=== PATIENT | male | born 1975 | race African-American/Black ===

== ENCOUNTER 2024-06-17 23:30 | Inpatient (IN) | payer OTHER ==
[~2024-06-17] VITALS: Ht 170.1 cm; Wt 57.8 kg
[2024-06-17 23:31] VITALS: BP 75/39
[2024-06-17] MEDS ORDERED: SODIUM CHLORIDE 0.9% 1,000 ML IV ONE (23:35)
[2024-06-18] VITALS (23 sets, daily range): BP systolic 72–184; BP diastolic 33–107
[2024-06-18 00:26] LABS: BASO % 0.1 % (0.0-1.0); EOS # 0.1 10*3/uL (0.0-0.4); EOS % 0.4 % (1.0-4.0); HEMATOCRIT 30.7 % (42.0-52.0); LYMPH # 0.9 10*3/uL (1.3-4.4); LYMPH % 5.6 % (27.0-41.0); MEAN CORPUSCULAR HGB 25.8 pg (27.0-31.0); MEAN CORPUSCULAR HGB CONC 29.3 g/dl (33.0-37.0); MEAN PLATELET VOLUME 10.4 fl (9.6-12.3); MONO # 1.4 10*3/uL (0.1-1.0); MONO % 8.3 % (3.0-9.0); NEUT % 84.8 % (47.0-73.0); PLATELET COUNT AUTOMATED 286 10*3/uL (130-400); RED BLOOD COUNT 3.49 10*6/uL (4.50-5.90); RED CELL DISTRI WIDTH 19.7 % (0-14.5); WHITE BLOOD COUNT 16.5 10*3/uL (4.8-10.8)
[2024-06-18 00:39] LABS: ACT PARTIAL THROMBO TIME 27.8 SECONDS (20.0-32.1)
[2024-06-18 00:43] LABS: ALKALINE PHOSPHATASE 161 U/L (46-116); CHLORIDE 97 mmol/L (98-107); POTASSIUM 4.8 mmol/L (3.4-5.1); SGPT/ALT 22 U/L (5-49); TOTAL PROTEIN 8.6 gm/dL (6.0-8.0)
[2024-06-18 00:45] LABS: BUN 64 mg/dl (9-23)
[2024-06-18 01:12] LABS: BILIRUBIN Negative (Negative); BLOOD 3+ (Negative); CLARITY Turbid (Clear); COLOR Red (Yellow); GLUCOSE Negative (Negative); KETONE Negative (Negative); LEUKO ESTERASE 3+ (Negative); NITRITE Negative (Negative); SPECIFIC GRAVITY 1.015 (1.001-1.030); UROBILINOGEN 0.2 E.U./dl (0.0-1.0)
[2024-06-18 01:17] LABS: PH >= 9.0 (4.5-8.0)
[2024-06-18] MEDS ORDERED: AZITHROMYCIN 250 ML IV ONE (01:20)
[2024-06-18] MEDS ORDERED: Ceftriaxone Sodium 1 GM/10 ML SYR IV ONE (01:20)
[2024-06-18] MEDS ORDERED: MORPHINE Sulfate 2 MG/ML SYR IV ONE (01:20)
[2024-06-18 01:53] LABS: BACTERIA 3+; RBC TNTC rbc/hpf (0-2); WBC 31-40 wbc/hpf (0-5)
[2024-06-18] MEDS ORDERED: Vancomycin Hydrochloride 250 ML IV ONE (02:15)
[2024-06-18] MEDS ORDERED: SODIUM CHLORIDE 0.9% 1,000 ML IV SCH (02:15)
[2024-06-18] MEDS ORDERED: Piperacillin Sodium/Tazobact 50 ML IV ONE (02:15)
[2024-06-18] MEDS ORDERED: TYLENOL325 M2 GT (03:18)
[2024-06-18] MEDS ORDERED: Albuterol Sulfate 2.5 MG/3 ML VIAL NEB ONE (03:20)
[2024-06-18] MEDS ORDERED: ACETYLCYST100 MG/1 M INH (03:22)
[2024-06-18] MEDS ORDERED: VENTOLIN 02.5 MG/3 M INH (03:23)
[2024-06-18] MEDS ORDERED: PACERONE100 MG GT (03:31)
[2024-06-18] MEDS ORDERED: BACLOFEN5 MG GT (03:32)
[2024-06-18] MEDS ORDERED: ARTIFICIAL TEAR1514 OU (03:33)
[2024-06-18] MEDS ORDERED: LAXATIVE SUPPOS10 MG R (03:35)
[2024-06-18] MEDS ORDERED: BUSPIRONE10 MG GT (03:38)
[2024-06-18] MEDS ORDERED: VIBRAMYCIN HYC100 MG GT (03:41)
[2024-06-18] MEDS ORDERED: [UNRECOGNIZED DRUG - OTHER] GT (03:47)
[2024-06-18] MEDS ORDERED: FERROUS SU300 MG/5 M GT (03:48)
[2024-06-18] MEDS ORDERED: FLEET ENEMA 13133 ML R (03:49)
[2024-06-18] MEDS ORDERED: BISACODYL 5 MG TAB PO PRN (03:55)
[2024-06-18] MEDS ORDERED: Ondansetron Hydrochloride 4 MG/2 ML VIAL IV PRN (03:55)
[2024-06-18] MEDS ORDERED: TEMAZEPAM 15 MG CAP PO PRN (03:55)
[2024-06-18] MEDS ORDERED: ACETAMINOPHEN 325 MG TAB PO PRN (03:55)
[2024-06-18] MEDS ORDERED: BISACODYL 10 MG SUPP R PRN (03:55)
[2024-06-18] MEDS ORDERED: ACETAMINOPHEN 650 MG SUPP R PRN (03:55)
[2024-06-18] MEDS ORDERED: Magnesium Hydroxide 30 ML UDC PO PRN (03:55)
[2024-06-18] MEDS ORDERED: MORPHINE Sulfate 2 MG/ML SYR IV PRN (03:55)
[2024-06-18] MEDS ORDERED: IPRATROPIUM BROMIDE 0.5 MG/2.5 ML AMP NEB SCH (04:10)
[2024-06-18] MEDS ORDERED: Albuterol Sulf/Ipratropium 3 ML VIAL NEB SCH (04:10)
[2024-06-18] MEDS ORDERED: HEPARIN SO5000 UNIT6 SC (04:56)
[2024-06-18] MEDS ORDERED: Ipratropium Brom3 ML INH ×2 (04:57→04:58)
[2024-06-18] MEDS ORDERED: LEVOXYL137 MCG GT (04:58)
[2024-06-18] MEDS ORDERED: LOPRESSOR25 MG GT (04:59)
[2024-06-18] MEDS ORDERED: MILK OF MA400 MG/53 GT (05:01)
[2024-06-18] MEDS ORDERED: NEURONTIN250 MG/51 GT (05:02)
[2024-06-18] MEDS ORDERED: HYDROCODONE-AC1 EACH GT (05:08)
[2024-06-18] MEDS ORDERED: SODIUM BICARBO650 MG GT (05:11)
[2024-06-18] MEDS ORDERED: SODIUM CHLORIDE15 ML INH (05:13)
[2024-06-18] MEDS ORDERED: VIOKACE 10,4401 EACH GT (05:16)
[2024-06-18] MEDS ORDERED: VISTARIL25 MG GT (05:18)
[2024-06-18 05:33] LABS: ALKALINE PHOSPHATASE 148 U/L (46-116); BUN 64 mg/dl (9-23); CHLORIDE 100 mmol/L (98-107); CHOLESTEROL 104 mg/dL (<200); FREE T4 0.91 ng/dl (0.89-1.76); LDL CHOLESTEROL 49 mg/dL (9-159); POTASSIUM 4.3 mmol/L (3.4-5.1); SGPT/ALT 20 U/L (5-49); TRIGLYCERIDES 97 mg/dl (<150)
[2024-06-18] MEDS ORDERED: Pantoprazole Sodium 40 MG VIAL IV SCH (06:00)
[2024-06-18] MEDS ORDERED: Cefepime Hydrochloride 2 GM in SODIUM CHLORIDE 0.9% 50 ML IV SCH ×4 (06:00→14:26)
[2024-06-18] MEDS ORDERED: SODIUM CHLORIDE 0.9% 50 ML IV ONE (06:13)
[2024-06-18 06:20] LABS: BASO % 0.1 % (0.0-1.0); EOS % 0.1 % (1.0-4.0); HEMATOCRIT 25.9 % (42.0-52.0); LYMPH % 5.8 % (27.0-41.0); MEAN CELL VOLUME 86.9 fl (80.0-94.0); MEAN CORPUSCULAR HGB 25.5 pg (27.0-31.0); MEAN CORPUSCULAR HGB CONC 29.3 g/dl (33.0-37.0); MEAN PLATELET VOLUME 10.9 fl (9.6-12.3); MONO # 0.9 10*3/uL (0.1-1.0); NEUT # 15.1 10*3/uL (2.3-7.9); NEUT % 88.5 % (47.0-73.0); PLATELET COUNT AUTOMATED 299 10*3/uL (130-400); RED BLOOD COUNT 2.98 10*6/uL (4.50-5.90); RED CELL DISTRI WIDTH 19.4 % (0-14.5)
[2024-06-18 06:23] LABS: ACT PARTIAL THROMBO TIME 29.1 SECONDS (20.0-32.1)
[2024-06-18 06:55] LABS: VITAMIN D, 25-HYDROXY 25.5 ng/mL (30-100)
[2024-06-18] MEDS ORDERED: HYDROmorphONE Hydrochloride 0.5 MG/0.5 ML SYRINGE IV ONE (08:00)
[2024-06-18] MEDS ORDERED: Chlorhexidine Gluconate 15 ML MOUTHWASH T SCH (10:00)
[2024-06-18] MEDS ORDERED: Enoxaparin Sodium 40 MG/0.4 ML SYR SC SCH (10:00)
[2024-06-18] MEDS ORDERED: SODIUM BICARBONATE 650 MG TAB GT PRN (16:00)
[2024-06-18] MEDS ORDERED: Acetaminophen/Hydrocodone HP 10/325 PO PRN (16:00)
[2024-06-18] MEDS ORDERED: Na Phos, Dibasic/Na Phos, Mo 1 EA BOT R PRN (16:00)
[2024-06-18] MEDS ORDERED: hydrOXYzine pamoate 25 MG CAP PEG PRN (16:00)
[2024-06-18] MEDS ORDERED: Polyethylene Glycol 15 ML BOT OPH PRN (16:00)
[2024-06-18] MEDS ORDERED: BACLOFEN 10 MG TAB PEG PRN (16:00)
[2024-06-18] MEDS ORDERED: SODIUM CHLORIDE 0.9% 1,000 ML IV ONE (16:25)
[2024-06-18 16:55] LABS: BASO % 0.2 % (0.0-1.0); HEMATOCRIT 25.8 % (42.0-52.0); LYMPH # 0.7 10*3/uL (1.3-4.4); MEAN CELL VOLUME 87.8 fl (80.0-94.0); MEAN CORPUSCULAR HGB 26.2 pg (27.0-31.0); MEAN CORPUSCULAR HGB CONC 29.8 g/dl (33.0-37.0); MEAN PLATELET VOLUME 10.2 fl (9.6-12.3); MONO # 1.4 10*3/uL (0.1-1.0); MONO % 10.6 % (3.0-9.0); NEUT % 83.7 % (47.0-73.0); PLATELET COUNT AUTOMATED 232 10*3/uL (130-400); RED BLOOD COUNT 2.94 10*6/uL (4.50-5.90); RED CELL DISTRI WIDTH 19.6 % (0-14.5); WHITE BLOOD COUNT 13.1 10*3/uL (4.8-10.8)
[2024-06-18] MEDS ORDERED: fentaNYL CITRATE 100 MCG/2 ML VIAL IV ONE (17:40)
[2024-06-18] MEDS ORDERED: Midazolam Hydrochloride 2 MG/2 ML VIAL IV ONE ×2 (17:40→18:10)
[2024-06-18] MEDS ORDERED: FOAM BANDAGE HEEL T ONE (17:52)
[2024-06-18] MEDS ORDERED: LEPTOSPERMUM HONEY 4 X 5 INCH WOUND DRESSING T ONE (17:52)
[2024-06-18] MEDS ORDERED: FOAM BANDAGE 5X5 T ONE (17:52)
[2024-06-18] MEDS ORDERED: FOAM BANDAGE 1 EACH BANDAGE T ONE (17:52)
[2024-06-18] MEDS ORDERED: HEEL PROTECTOR DEVICE ONE (17:52)
[2024-06-18] MEDS ORDERED: fentaNYL CITRATE 100 MCG/2 ML VIAL ONE (17:56)
[2024-06-18] MEDS ORDERED: Midazolam Hydrochloride 2 MG/2 ML VIAL ONE ×2 (17:56→18:23)
[2024-06-18] MEDS ORDERED: Vancomycin Hydrochloride 1,000 MG in SODIUM CHLORIDE 0.9% 250 ML IV SCH (18:00)
[2024-06-18] MEDS ORDERED: Midazolam Hydrochloride 5 MG/5 ML VIAL IV ONE (19:35)
[2024-06-18] MEDS ORDERED: NOREPINEPHRINE BITARTRATE/D5W 250 ML IV ONE (19:43)
[2024-06-18] MEDS ORDERED: Midazolam Hydrochloride 5 MG/5 ML VIAL ONE (19:50)
[2024-06-18] MEDS ORDERED: Metoprolol Tartrate 25 MG TAB PEG SCH (22:00)
[2024-06-18] MEDS ORDERED: busPIRone Hydrochloride 10 MG TAB PEG SCH (22:00)
[2024-06-19] VITALS (36 sets, daily range): BP systolic 93–136; BP diastolic 41–76
[2024-06-19 05:32] LABS: ALKALINE PHOSPHATASE 127 U/L (46-116); BUN 61 mg/dl (9-23); CHLORIDE 107 mmol/L (98-107); SGPT/ALT 21 U/L (5-49)
[2024-06-19] MEDS ORDERED: Levothyroxine Sodium 137 MCG TABLET PEG SCH (06:00)
[2024-06-19 06:06] LABS: HEMATOCRIT 25.8 % (42.0-52.0); MEAN CELL VOLUME 88.7 fl (80.0-94.0); MEAN CORPUSCULAR HGB 26.1 pg (27.0-31.0); MEAN CORPUSCULAR HGB CONC 29.5 g/dl (33.0-37.0); MEAN PLATELET VOLUME 10.8 fl (9.6-12.3); PLATELET COUNT AUTOMATED 288 10*3/uL (130-400); RED BLOOD COUNT 2.91 10*6/uL (4.50-5.90); RED CELL DISTRI WIDTH 19.6 % (0-14.5); WHITE BLOOD COUNT 16.1 10*3/uL (4.8-10.8)
[2024-06-19 06:11] LABS: MANUAL DIFF REFLEX YES
[2024-06-19 06:55] LABS: BASOPHILS 1 % (0-1); OVALOCYTES FEW; PLATELET SUFFICIENCY NORMAL (NORMAL); POLYCHROMASIA SLIGHT; TOTAL CELLS COUNTED 100 #CELLS
[2024-06-19 06:56] LABS: TARGET CELLS FEW
[2024-06-19] MEDS ORDERED: NOREPINEPHRINE BITARTRATE/D5W 250 ML IV SCH (07:55)
[2024-06-19] MEDS ORDERED: Amiodarone Hydrochloride 200 MG TAB PEG SCH (10:00)
[2024-06-19] MEDS ORDERED: Cholecalciferol 5,000 IU CAP (125 MCG) PO SCH (10:00)
[2024-06-19] MEDS ORDERED: Cholecalciferol 5,000 IU CAP (125 MCG) PEG SCH (10:00)
[2024-06-19] MEDS ORDERED: FERROUS SULFATE 300 MG/5 ML UDC GT SCH (10:00)
[2024-06-19] MEDS ORDERED: FOAM BANDAGE 5X5 T ONE (13:31)
[2024-06-19] MEDS ORDERED: HYDROGEL WOUND DRESSING T ONE (13:32)
[2024-06-19] MEDS ORDERED: BARIUM SULFATE 60% 355 ML BOT DIAG SCH (15:10)
[2024-06-19] MEDS ORDERED: BARIUM SULFATE 98% 340 GM BOT DIAG SCH (15:10)
[2024-06-19] MEDS ORDERED: Vancomycin Hydrochloride 1,000 MG in SODIUM CHLORIDE 0.9% 250 ML IV SCH (22:00)
[2024-06-20] VITALS: BP 94/37
[2024-06-20 04:00] VITALS: BP 119/69
[2024-06-20 05:40] LABS: BUN 68 mg/dl (9-23); CHLORIDE 111 mmol/L (98-107); POTASSIUM 3.7 mmol/L (3.4-5.1)
[2024-06-20 06:06] LABS: BASO % 0.2 % (0.0-1.0); EOS % 0.4 % (1.0-4.0); LYMPH # 0.6 10*3/uL (1.3-4.4); LYMPH % 5.8 % (27.0-41.0); MEAN CELL VOLUME 90.3 fl (80.0-94.0); MEAN CORPUSCULAR HGB 26.4 pg (27.0-31.0); MEAN CORPUSCULAR HGB CONC 29.2 g/dl (33.0-37.0); MEAN PLATELET VOLUME 10.8 fl (9.6-12.3); MONO # 0.7 10*3/uL (0.1-1.0); MONO % 6.5 % (3.0-9.0); NEUT # 9.3 10*3/uL (2.3-7.9); NEUT % 86.6 % (47.0-73.0); PLATELET COUNT AUTOMATED 257 10*3/uL (130-400); RED BLOOD COUNT 2.77 10*6/uL (4.50-5.90); RED CELL DISTRI WIDTH 19.5 % (0-14.5); WHITE BLOOD COUNT 10.7 10*3/uL (4.8-10.8)
[2024-06-20 08:00] VITALS: BP 90/46
[2024-06-20 12:00] VITALS: BP 87/46
[2024-06-20 16:00] VITALS: BP 121/65
[2024-06-20 20:00] VITALS: BP 104/46
[2024-06-21] VITALS (14 sets, daily range): BP systolic 75–110; BP diastolic 41–57
[2024-06-21 05:20] LABS: BUN 74 mg/dl (9-23); CHLORIDE 111 mmol/L (98-107); POTASSIUM 3.8 mmol/L (3.4-5.1)
[2024-06-21] MEDS ORDERED: FOAM BANDAGE 5X5 T ONE (05:36)
[2024-06-21] MEDS ORDERED: LEPTOSPERMUM HONEY 4 X 5 INCH WOUND DRESSING T ONE (05:37)
[2024-06-21 06:28] LABS: HEMATOCRIT 23.7 % (42.0-52.0); MEAN CELL VOLUME 88.8 fl (80.0-94.0); MEAN CORPUSCULAR HGB 25.8 pg (27.0-31.0); MEAN CORPUSCULAR HGB CONC 29.1 g/dl (33.0-37.0); MEAN PLATELET VOLUME 10.3 fl (9.6-12.3); PLATELET COUNT AUTOMATED 226 10*3/uL (130-400); RED BLOOD COUNT 2.67 10*6/uL (4.50-5.90); RED CELL DISTRI WIDTH 19.9 % (0-14.5); WHITE BLOOD COUNT 8.3 10*3/uL (4.8-10.8)
[2024-06-21 06:30] LABS: MANUAL DIFF REFLEX YES
[2024-06-21 07:07] LABS: POLYCHROMASIA SLIGHT; TOTAL CELLS COUNTED 100 #CELLS
[2024-06-21 07:08] LABS: PLATELET SUFFICIENCY NORMAL (NORMAL); ROULEAUX SLIGHT; TARGET CELLS FEW
[2024-06-21] MEDS ORDERED: Pantoprazole Sodium 40 MG VIAL IV SCH ×2 (07:57→18:00)
[2024-06-21] MEDS ORDERED: SODIUM CHLORIDE 0.9% 250 ML IV SCH (08:50)
[2024-06-21] MEDS ORDERED: SODIUM CHLORIDE 0.9% 500 ML IV ONE (09:21)
[2024-06-21] MEDS ORDERED: Midodrine Hydrochloride 5 MG TAB PEG SCH (14:00)
[2024-06-21] MEDS ORDERED: Piperacillin Sodium/Tazobact 4.5 GM in SODIUM CHLORIDE 0.9% 100 ML IV SCH (16:00)
[2024-06-21 17:07] LABS: BASO % 0.3 % (0.0-1.0); EOS # 0.2 10*3/uL (0.0-0.4); EOS % 1.5 % (1.0-4.0); HEMATOCRIT 28.1 % (42.0-52.0); LYMPH # 0.7 10*3/uL (1.3-4.4); LYMPH % 7.3 % (27.0-41.0); MEAN CELL VOLUME 88.1 fl (80.0-94.0); MEAN CORPUSCULAR HGB 26.3 pg (27.0-31.0); MEAN CORPUSCULAR HGB CONC 29.9 g/dl (33.0-37.0); MEAN PLATELET VOLUME 9.8 fl (9.6-12.3); MONO # 0.7 10*3/uL (0.1-1.0); MONO % 6.9 % (3.0-9.0); NEUT # 8.5 10*3/uL (2.3-7.9); NEUT % 83.1 % (47.0-73.0); PLATELET COUNT AUTOMATED 226 10*3/uL (130-400); RED BLOOD COUNT 3.19 10*6/uL (4.50-5.90); RED CELL DISTRI WIDTH 18.8 % (0-14.5); WHITE BLOOD COUNT 10.2 10*3/uL (4.8-10.8)
[2024-06-21] MEDS ORDERED: VANCOMYCIN/WATER FOR INJ (PEG) 150 ML IV SCH (20:00)
[2024-06-22] VITALS (9 sets, daily range): BP systolic 94–128; BP diastolic 51–86
[2024-06-22 06:19] LABS: BASO % 0.3 % (0.0-1.0); EOS # 0.2 10*3/uL (0.0-0.4); EOS % 1.6 % (1.0-4.0); HEMATOCRIT 37.7 % (42.0-52.0); LYMPH # 1.2 10*3/uL (1.3-4.4); LYMPH % 9.5 % (27.0-41.0); MEAN CORPUSCULAR HGB CONC 28.4 g/dl (33.0-37.0); MEAN PLATELET VOLUME 10.3 fl (9.6-12.3); MONO # 0.7 10*3/uL (0.1-1.0); MONO % 5.9 % (3.0-9.0); NEUT # 10.2 10*3/uL (2.3-7.9); NEUT % 81.6 % (47.0-73.0); PLATELET COUNT AUTOMATED 267 10*3/uL (130-400); RED BLOOD COUNT 4.12 10*6/uL (4.50-5.90); RED CELL DISTRI WIDTH 19.4 % (0-14.5); WHITE BLOOD COUNT 12.5 10*3/uL (4.8-10.8)
[2024-06-22 06:45] LABS: MEAN CELL VOLUME 91.5 fl (80.0-94.0)
[2024-06-22 08:04] LABS: BUN 72 mg/dl (9-23); CHLORIDE 112 mmol/L (98-107); POTASSIUM 3.7 mmol/L (3.4-5.1)
[2024-06-22 12:49] LABS: ABG BASE EXCESS -0.8 mmol/L (-2.0-2.0); ARTERIAL BLOOD GAS PH 7.219 (7.35-7.45)
[2024-06-22] MEDS ORDERED: Metoprolol Tartrate 5 MG/5 ML VIAL IV ONE ×2 (21:40→22:19)
[2024-06-23] VITALS (10 sets, daily range): BP systolic 103–145; BP diastolic 56–97
[2024-06-23 05:19] LABS: BUN 69 mg/dl (9-23); CHLORIDE 114 mmol/L (98-107); POTASSIUM 3.7 mmol/L (3.4-5.1)
[2024-06-23 06:23] LABS: BASO % 0.2 % (0.0-1.0); EOS # 0.4 10*3/uL (0.0-0.4); EOS % 3.4 % (1.0-4.0); LYMPH # 0.8 10*3/uL (1.3-4.4); LYMPH % 7.8 % (27.0-41.0); MEAN CELL VOLUME 92.2 fl (80.0-94.0); MEAN CORPUSCULAR HGB 26.6 pg (27.0-31.0); MEAN CORPUSCULAR HGB CONC 28.9 g/dl (33.0-37.0); MEAN PLATELET VOLUME 10.3 fl (9.6-12.3); MONO # 0.8 10*3/uL (0.1-1.0); MONO % 7.3 % (3.0-9.0); NEUT # 8.3 10*3/uL (2.3-7.9); NEUT % 80.5 % (47.0-73.0); PLATELET COUNT AUTOMATED 239 10*3/uL (130-400); RED BLOOD COUNT 2.93 10*6/uL (4.50-5.90); RED CELL DISTRI WIDTH 19.7 % (0-14.5); WHITE BLOOD COUNT 10.4 10*3/uL (4.8-10.8)
[2024-06-23] MEDS ORDERED: VANCOMYCIN/WATER FOR INJ (PEG) 150 ML IV SCH (08:00)
[2024-06-23] MEDS ORDERED: SODIUM CHLORIDE 0.45% 1,000 ML IV ONE (09:40)
[2024-06-23] MEDS ORDERED: Enoxaparin Sodium 40 MG/0.4 ML SYR SC SCH (10:00)
[2024-06-23] MEDS ORDERED: BARIUM SULFATE 98% 340 GM BOT PO ONE ×2 (13:20→13:42)
[2024-06-23] MEDS ORDERED: HYDROmorphONE Hydrochloride 0.5 MG/0.5 ML SYRINGE IV ONE (13:55)
[2024-06-23] MEDS ORDERED: Ketorolac Tromethamine 15 MG/ML VIAL IV ONE (18:10)
[2024-06-23 18:27] LABS: BUN 60 mg/dl (9-23); CHLORIDE 115 mmol/L (98-107); POTASSIUM 3.7 mmol/L (3.4-5.1)
[2024-06-23] MEDS ORDERED: HYDROmorphONE Hydrochloride 0.5 MG/0.5 ML SYRINGE IV PRN (21:00)
[2024-06-23] MEDS ORDERED: DEXTROSE 5% 1,000 ML IV SCH (21:00)
[2024-06-23] MEDS ORDERED: MORPHINE Sulfate 2 MG/ML SYR IV PRN (21:05)
[2024-06-23] MEDS ORDERED: ACETAMINOPHEN 100 ML IV PRN (21:10)
[2024-06-24] MEDS ORDERED: VANCOMYCIN/WATER FOR INJ (PEG) 150 ML IV SCH (20:00)
== END 2024-06-23 23:59 | disposition hospice, inpatient (51) | DRG 870 ==
LOC: ED 23:30 → ICCU 06-18 02:20 → EDHOLD 06-18 02:20 → ICCU 06-18 09:23
PROVIDERS: Internal Medicine; Internal Medicine Critical Care Medicine; Student in an Organized Health Care Education/Training Program; ADMIT Internal Medicine; ATTEND Internal Medicine
PROC: 5A1955Z Respiratory Ventilation, Greater than 96 Consecutive Hours (ICD-10-PCS; principal; 2024-06-18)
PROC: 02HV33Z Insertion of Infusion Device into Superior Vena Cava, Percutaneous Approach (ICD-10-PCS; 2024-06-18)
PROC: B548ZZA Ultrasonography of Superior Vena Cava, Guidance (ICD-10-PCS; 2024-06-18)
PROC: 30233N1 Transfusion of Nonautologous Red Blood Cells into Peripheral Vein, Percutaneous Approach (ICD-10-PCS; 2024-06-21)
DX: A41.9 Sepsis, unspecified organism (principal); L89.114 Pressure ulcer of right upper back, stage 4; L89.154 Pressure ulcer of sacral region, stage 4; L89.314 Pressure ulcer of right buttock, stage 4; E43 Unspecified severe protein-calorie malnutrition; J69.0 Pneumonitis due to inhalation of food and vomit; G82.50 Quadriplegia, unspecified; J15.69 Pneumonia due to other Gram-negative bacteria; N17.0 Acute kidney failure with tubular necrosis; J96.20 Acute and chronic respiratory failure, unspecified whether with hypoxia or hypercapnia; N30.01 Acute cystitis with hematuria; E87.1 Hypo-osmolality and hyponatremia; J98.11 Atelectasis; Z68.1 Body mass index [BMI] 19.9 or less, adult; D64.9 Anemia, unspecified; F32.A Depression, unspecified; E11.9 Type 2 diabetes mellitus without complications; I48.91 Unspecified atrial fibrillation; R65.20 Severe sepsis without septic shock; S31.000A Unspecified open wound of lower back and pelvis without penetration into retroperitoneum, initial encounter; E87.8 Other disorders of electrolyte and fluid balance, not elsewhere classified; N20.0 Calculus of kidney; N31.9 Neuromuscular dysfunction of bladder, unspecified; Z93.0 Tracheostomy status; Z87.891 Personal history of nicotine dependence; Z93.59 Other cystostomy status; Z79.899 Other long term (current) drug therapy; Z79.01 Long term (current) use of anticoagulants; Z79.2 Long term (current) use of antibiotics; X58.XXXA Exposure to other specified factors, initial encounter; Y93.89 Activity, other specified; Y92.89 Other specified places as the place of occurrence of the external cause; Y99.8 Other external cause status

== ENCOUNTER 2024-06-23 23:59 | Inpatient (IN) | payer OTHER ==
[~2024-06-23] VITALS: Ht 170.2 cm; Wt 57.6 kg
[2024-06-23 23:59] VITALS: BP 104/76
[~2024-06-23 23:59] MED LIST: ACETYLCYST100 MG/1 M INH; ARTIFICIAL TEAR1514 OU; BACLOFEN5 MG GT; BUSPIRONE10 MG GT; FERROUS SU300 MG/5 M GT; FLEET ENEMA 13133 ML R; HEPARIN SO5000 UNIT6 SC; HYDROCODONE-AC1 EACH GT; Ipratropium Brom3 ML INH; LAXATIVE SUPPOS10 MG R; LEVOXYL137 MCG GT; LOPRESSOR25 MG GT; MILK OF MA400 MG/53 GT; NEURONTIN250 MG/51 GT; PACERONE100 MG GT; SODIUM BICARBO650 MG GT; SODIUM CHLORIDE15 ML INH; TYLENOL325 M2 GT; VENTOLIN 02.5 MG/3 M INH; VIBRAMYCIN HYC100 MG GT; VIOKACE 10,4401 EACH GT; VISTARIL25 MG GT; [UNRECOGNIZED DRUG - OTHER] GT
[2024-06-24] MEDS ORDERED: LORazepam 2 MG/ML VIAL IV PRN (00:20)
[2024-06-24] MEDS ORDERED: ACETAMINOPHEN 650 MG SUPP R PRN ×2 (00:20→00:25)
[2024-06-24] MEDS ORDERED: ACETAMINOPHEN 325 MG TAB PO PRN (00:20)
[2024-06-24] MEDS ORDERED: MORPHINE Sulfate 2 MG/ML SYR IV PRN (00:25)
[2024-06-24] MEDS ORDERED: HYDROmorphONE Hydrochloride 0.5 MG/0.5 ML SYRINGE IV PRN (00:25)
[2024-06-24] MEDS ORDERED: HYOSCYAMINE SULFATE 0.125 MG TAB SL SCH (06:00)
[2024-06-24] MEDS ORDERED: BISACODYL 10 MG SUPP R SCH (10:00)
== END 2024-06-24 02:18 | DRG 871 ==
LOC: ICCU 23:59
PROVIDERS: ADMIT Internal Medicine; ATTEND Internal Medicine
DX: A41.9 Sepsis, unspecified organism (principal); E43 Unspecified severe protein-calorie malnutrition; J69.0 Pneumonitis due to inhalation of food and vomit; N17.0 Acute kidney failure with tubular necrosis; G82.50 Quadriplegia, unspecified; N30.01 Acute cystitis with hematuria; E87.1 Hypo-osmolality and hyponatremia; J96.10 Chronic respiratory failure, unspecified whether with hypoxia or hypercapnia; Z68.1 Body mass index [BMI] 19.9 or less, adult; R65.20 Severe sepsis without septic shock; E87.8 Other disorders of electrolyte and fluid balance, not elsewhere classified; N31.9 Neuromuscular dysfunction of bladder, unspecified; Z66 Do not resuscitate; Z51.5 Encounter for palliative care